=== PATIENT | female | born 1935 | race Caucasian/White ===

== ENCOUNTER 2024-10-12 23:52 | Emergency (ER) | payer MEDICARE, MEDICAID ==
[~2024-10-12] VITALS: Ht 152.4 cm; Wt 73.0 kg
[2024-10-13 00:13] VITALS: TEMP 36.7; O2SAT 100
[2024-10-13 00:19] VITALS: BP 221/79; PULSE 87; RESP 16; O2SAT 100
[2024-10-13] MEDS ORDERED: ACETAMINOPHEN 500MG TABLET PO ONE (00:30)
[2024-10-13 01:11] LABS: BASOPHILS % 0.5 % (0.0-2.0); EOSINOPHILS % 7.1 % (0.0-5.0); HEMATOCRIT. 38.6 % (36.0-48.0); LYMPHOCYTES % 37.4 % (20.0-50.0); MEAN CORPUSCULAR HEMOGLOBIN 30.1 pg (28.0-32.0); MEAN CORPUSCULAR HGB CONC 33.7 g/dL (31.0-37.0); MEAN CORPUSCULAR VOLUME 89.3 fL (81.0-99.0); MEAN PLATELET VOLUME 9.1 fl (7.4-10.4); MONOCYTES % 7.3 % (2.0-8.0); NEUTROPHILS % 47.7 % (40.0-76.0); PLATELET 234 x1000/uL (130-400); RED BLOOD CELL COUNT 4.32 mill/uL (4.2-5.4); RED CELL DISTRIBUTION WIDTH 14.3 % (11.6-14.6); WHITE BLOOD COUNT 6.4 x1000/uL (4.5-11.0)
[2024-10-13 01:23] LABS: PROTHROMBIN TIME 10.4 sec (9.6-11.0)
[2024-10-13 01:37] LABS: CHLORIDE 105 mEq/L (98-107); SODIUM 138 mEq/L (136-145)
[2024-10-13 01:38] LABS: CARBON DIOXIDE 26 mEq/L (21-32)
[2024-10-13 01:39] LABS: CALCIUM 9.8 mg/dL (8.7-10.4)
[2024-10-13 01:43] LABS: CREATININE 0.5 mg/dL (0.6-1.0)
[2024-10-13 01:44] LABS: GLUCOSE 122 mg/dL (70-105); TROPONIN I HIGH SENSITIVITY 12 ng/L (3.0-34); UREA NITROGEN BLOOD 10 mg/dL (9-23)
== END 2024-10-13 04:12 | disposition home or self-care (01) ==
LOC: ER 23:52
DX: S01.81XA Laceration without foreign body of other part of head, initial encounter (principal); E78.00 Pure hypercholesterolemia, unspecified; Z96.659 Presence of unspecified artificial knee joint; W01.0XXA Fall on same level from slipping, tripping and stumbling without subsequent striking against object, initial encounter; Y92.000 Kitchen of unspecified non-institutional (private) residence as the place of occurrence of the external cause; Y93.01 Activity, walking, marching and hiking; Y99.8 Other external cause status
CPT/HCPCS: 12013; 36415; 71045; 80048; 84484; 85025; 99284